=== PATIENT | female | born 1955 | race Caucasian/White ===

== ENCOUNTER 2018-06-15 22:35 | Emergency (ER) | payer OTHER ==
[2018-06-15] MEDS ORDERED: MEPERIDINE HCL 50 MG/ML AMP ONE (23:07)
[2018-06-15] MEDS ORDERED: NA CHLORIDE 0.9% 1,000 ML ONE (23:48)
[2018-06-16] MEDS ORDERED: PROPOFOL 200 MG/20 ML VIAL IV ONE (00:08)
[2018-06-16] MEDS ORDERED: MORPHINE 4 MG/ML SYR ONE (00:12)
[2018-06-16] MEDS ORDERED: ONDANSETRON 4 MG/2 ML VIAL ONE (00:13)
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
== END 2018-06-16 01:45 | disposition home or self-care (01) ==
LOC: ER 22:35
PROC: 2W3CX1Z Immobilization of Right Lower Arm using Splint (ICD-10-PCS; principal; 2018-06-16)
DX: S52.321A Displaced transverse fracture of shaft of right radius, initial encounter for closed fracture (principal); S52.221A Displaced transverse fracture of shaft of right ulna, initial encounter for closed fracture; S62.511A Displaced fracture of proximal phalanx of right thumb, initial encounter for closed fracture; S62.636A Displaced fracture of distal phalanx of right little finger, initial encounter for closed fracture; V49.49XA Driver injured in collision with other motor vehicles in traffic accident, initial encounter; Z91.048 Other nonmedicinal substance allergy status; I10 Essential (primary) hypertension
CPT/HCPCS: 96361; 96372; 96374; 96375; 99285; J2175; J2405; J7030